=== PATIENT | female | born 1975 | race Caucasian/White ===

== ENCOUNTER 2017-08-17 15:12 | Emergency (ER) | payer BC, SELFPAY ==
[~2017-08-17 15:12] MED LIST: Iopamidol 370 76% 100 ML VIAL ONE
[2017-08-17] MEDS ORDERED: Ketorolac Tromethamine 30 MG/ML VIAL ONE (15:50)
[2017-08-17 15:56] LABS: #Eosinphils 0.1 thou/uL (0.0-0.7); #Lymphocytes 1.1 thou/uL (1.20-3.40); #Monocytes 0.6 thou/uL (0.11-0.59); #Neutrophils 5.9 thou/uL (1.40-6.50); %Basophils 0.2 % (0.0-1.0); %Eosinophils 1.3 % (0.0-10.0); %Lymphocytes 14.2 % (21.0-51.0); %Monocytes 7.2 % (0.0-10.0); %Neutrophils 77.1 % (42.0-75.0); Mean Corpuscular HGB CONC 32.9 g/dL (32.0-36.0); Mean Corpuscular Hemoglobin 29.1 pg (27.0-31.0); Mean Corpuscular Volume 88.6 fl (81.0-99.0); Mean Platelet Volume 7.6 fL (7.4-10.4); Platelet Count 231 thou/uL (130-400); RBC Distribution Width 10.6 % (11.5-14.5); Red Blood Cell (RBC) Count 4.13 mill/uL (4.20-5.40); White Blood Cell (WBC) Count 7.6 thou/uL (4.8-10.8)
[2017-08-17 16:08] LABS: ALT (SGPT) 11 U/L (8-55); AST (SGOT) 11 U/L (5-34); Albumin 4.1 g/dL (3.5-5.0); Alkaline Phosphatase 61 U/L (40-150); Anion Gap 18 mmol/L (10-20); BUN (Urea Nitrogen) 9 mg/dL (7.0-18.7); Bilirubin, Total 0.6 mg/dL (0.2-1.2); Calc. Creatinine Clearance 0 mL/min (70-130); Calcium 8.9 mg/dL (7.8-10.44); Carbon Dioxide 22 mmol/L (22-29); Chloride 103 mmol/L (98-107); Estimated GFR-MDRD Greater than 90; Globulin 2.9 g/dL (2.4-3.5); Glucose 94 mg/dL (70-105); Lipase 11 U/L (8-78); Potassium 3.7 mmol/L (3.5-5.1); Sodium 139 mmol/L (136-145)
[2017-08-17 16:52] LABS: Bilirubin Negative (Negative); Blood, Urine Trace (Negative); Clarity Clear (Clear); Glucose, Urine (Dipstick) Negative (Negative); Leukocyte Negative (Negative); Nitrite Negative (Negative); Pregnancy Test - Urine (BHCG) Negative (Negative); Pregu Control Background? CLEAR/WHITE (CLR/WHITE); Pregu Control Bar Appear? YES (CONTROL BAR); Protein, Urine (Dipstick) Negative (Neg-Trace); Urobilinogen 0.2 mg/dL (0.2-1.0)
[2017-08-17 17:08] LABS: Bacteria/HPF 1+ HPF (None Seen); RBC/HPF 0-3 HPF (0-3); WBC/HPF None Seen HPF (0-3)
--- NOTE | 2017-08-17 17:56 | CT ---
CT ABDOMEN AND PELVIS WITH CONTRAST 08/17/17 HISTORY: Left lower quadrant pain. COMPARISON: None. FINDINGS: Lung bases are clear. No pericardial effusion. Hypodensity is present in hepatic segment [place] as well as V, statistically likely cysts. There is mild diverticular disease of the sigmoid colon as well as what appears to be an inflamed div erticulum as well as adjacent submucosal edema. No evidence of microperforation. Small volume free fl uid in the pelvis. Kidneys are unremarkable. No hydronephrosis. The spleen and pancreas are unremarkable. IMPRESSION: Uncomplicated sigmoid diverticulitis. Followup recommended. No evidence for macroperforation or conta ined collection. POS: [facility]
== END 2017-08-17 17:44 | disposition home or self-care (01) ==
LOC: SCSER 15:12
DX: K57.92 Diverticulitis of intestine, part unspecified, without perforation or abscess without bleeding (principal); Z79.899 Other long term (current) drug therapy
CPT/HCPCS: 74177; 80053; 81003; 81015; 81025; 83690; 85025; 96361; 96374; J1885